=== PATIENT | female | born 1980 | race Caucasian/White ===

== ENCOUNTER 2021-06-07 08:07 | Outpatient (RCR) | payer OTHER, SELFPAY ==
[2021-06-07] MEDS: Normal Saline Flush 10 ML SYR IVP (08:37)
[2021-06-07 08:45] LABS: Abs Immature Grans 0.03 10^3/uL (0.0-0.06); Absolute Basophil Count 0.04 10^3/uL (0.0-0.2); Absolute Eosinophil Count 0.25 10^3/uL (0.0-0.7); Absolute Lymphocyte Count 0.97 10^3/uL (1.2-3.4); Absolute Monocyte Count 0.65 10^3/uL (0.1-0.8); Absolute Neutrophil Count 2.95 10^3/uL (1.2-6.7); Basophils % 0.8; Eosinophils % 5.1; HCT 38.2 % (36.0-46.0); HGB 11.9 g/dL (11.2-15.7); Immature Grans % 0.6; Lymphocytes % 19.8; MCH 30.1 pg (27.0-33.0); MCHC 31.2 % (32.0-36.0); MCV 96.5 fL (80-95); MPV 9.1 fL (8.0-11.0); Monocytes % 13.3; Neutrophils % 60.4; Nucleated RBC 0 %; Platelet Count 254 10^3/uL (130-400); RBC 3.96 10^6/uL (3.93-5.22); RDW 17.1 % (11.7-14.6); RDW-SD 60.5 fL; WBC 4.89 10^3/uL (4.4-10.8)
[2021-06-07 08:59] LABS: ALT 42 U/L (14-59); AST 30 U/L (15-37); Albumin 3.4 g/dL (3.4-5.0); Alkaline Phosphatase 142 U/L (46-116); Anion Gap 11.2 mmol/L (3-11); BUN 10 mg/dL (7-18); Bilirubin, Total 0.4 mg/dL (0.2-1.0); CO2 26.8 mmol/L (21.0-32.0); CREATININE 0.6 mg/dL (0.55-1.02); Chloride 109 mmol/L (98-107); Glucose 101 mg/dL (74-106); Potassium 3.9 mmol/L (3.5-5.1); Sodium 147 mmol/L (136-145); Total Protein 6.8 g/dL (6.4-8.2)
[2021-06-07 17:33] LABS: CEA 11.6 ng/mL (See Note)
== END 2021-06-20 23:59 | disposition home or self-care (01) ==
LOC: INF 08:07
PROVIDERS: Visit Provider Internal Medicine Hematology & Oncology
DX: C20 Malignant neoplasm of rectum (principal); C78.00 Secondary malignant neoplasm of unspecified lung; Z45.2 Encounter for adjustment and management of vascular access device
CPT/HCPCS: 36415; 36591; 80053; 82378; 85025

== ENCOUNTER 2021-07-18 02:21 | Outpatient (RCR) | payer OTHER, SELFPAY ==
[2021-06-21] MEDS: Normal Saline Flush 10 ML SYR IVP (10:38)
[2021-06-21 10:51] LABS: Abs Immature Grans 0.18 10^3/uL (0.0-0.06); Absolute Basophil Count 0.05 10^3/uL (0.0-0.2); Absolute Eosinophil Count 0.65 10^3/uL (0.0-0.7); Absolute Lymphocyte Count 1.54 10^3/uL (1.2-3.4); Absolute Monocyte Count 0.44 10^3/uL (0.1-0.8); Absolute Neutrophil Count 6.45 10^3/uL (1.2-6.7); Basophils % 0.5; HCT 38.5 % (36.0-46.0); HGB 11.9 g/dL (11.2-15.7); Immature Grans % 1.9; Lymphocytes % 16.5; MCH 29.8 pg (27.0-33.0); MCHC 30.9 % (32.0-36.0); MCV 96.3 fL (80-95); MPV 9.2 fL (8.0-11.0); Monocytes % 4.7; Neutrophils % 69.4; Nucleated RBC 0 %; Platelet Count 218 10^3/uL (130-400); RDW-SD 59.6 fL; WBC 9.31 10^3/uL (4.4-10.8)
[2021-06-21 11:07] LABS: ALT 77 U/L (14-59); AST 34 U/L (15-37); Albumin 3.3 g/dL (3.4-5.0); Alkaline Phosphatase 188 U/L (46-116); Anion Gap 9.7 mmol/L (3-11); BUN 13 mg/dL (7-18); Bilirubin, Total 0.3 mg/dL (0.2-1.0); CO2 25.3 mmol/L (21.0-32.0); CREATININE 0.7 mg/dL (0.55-1.02); Calcium 8.7 mg/dL (8.5-10.1); Chloride 106 mmol/L (98-107); Glucose 108 mg/dL (74-106); Potassium 3.7 mmol/L (3.5-5.1); Sodium 141 mmol/L (136-145); Total Protein 6.6 g/dL (6.4-8.2)
[2021-06-22 08:43] LABS: CEA 7.4 ng/mL (See Note)
[2021-07-05] MEDS: Normal Saline Flush 10 ML SYR IVP (09:30)
[2021-07-05 09:44] LABS: Abs Immature Grans 0.27 10^3/uL (0.0-0.06); Absolute Basophil Count 0.07 10^3/uL (0.0-0.2); Absolute Eosinophil Count 0.33 10^3/uL (0.0-0.7); Absolute Lymphocyte Count 1.49 10^3/uL (1.2-3.4); Absolute Monocyte Count 0.47 10^3/uL (0.1-0.8); Absolute Neutrophil Count 6.27 10^3/uL (1.2-6.7); Basophils % 0.8; Eosinophils % 3.7; HCT 35.4 % (36.0-46.0); HGB 10.9 g/dL (11.2-15.7); Lymphocytes % 16.7; MCH 29.5 pg (27.0-33.0); MCHC 30.8 % (32.0-36.0); MCV 95.7 fL (80-95); MPV 8.8 fL (8.0-11.0); Monocytes % 5.3; Neutrophils % 70.5; Nucleated RBC 0 %; Platelet Count 228 10^3/uL (130-400); RDW 17.4 % (11.7-14.6); RDW-SD 60.9 fL
[2021-07-05 10:01] LABS: ALT 94 U/L (14-59); AST 44 U/L (15-37); Alkaline Phosphatase 207 U/L (46-116); Anion Gap 10.4 mmol/L (3-11); BUN 11 mg/dL (7-18); Bilirubin, Total 0.3 mg/dL (0.2-1.0); CO2 25.6 mmol/L (21.0-32.0); CREATININE 0.7 mg/dL (0.55-1.02); Calcium 8.5 mg/dL (8.5-10.1); Chloride 108 mmol/L (98-107); Glucose 108 mg/dL (74-106); Potassium 3.4 mmol/L (3.5-5.1); Sodium 144 mmol/L (136-145); Total Protein 6.4 g/dL (6.4-8.2)
[2021-07-05 16:56] LABS: CEA 7.2 ng/mL (See Note)
[2021-07-18] MEDS: Normal Saline Flush 10 ML SYR IVP (09:15)
[2021-07-18 09:20] LABS: HCT 36.8 % (36.0-46.0); HGB 11.2 g/dL (11.2-15.7); MCH 29.5 pg (27.0-33.0); MCHC 30.4 % (32.0-36.0); MCV 96.8 fL (80-95); MPV 9.1 fL (8.0-11.0); Nucleated RBC 0 %; Platelet Count 209 10^3/uL (130-400); RDW 17.6 % (11.7-14.6); RDW-SD 62.1 fL; WBC 10.03 10^3/uL (4.4-10.8)
[2021-07-18 09:32] LABS: ALT 56 U/L (14-59); AST 30 U/L (15-37); Albumin 3.1 g/dL (3.4-5.0); Alkaline Phosphatase 201 U/L (46-116); Anion Gap 9.8 mmol/L (3-11); BUN 10 mg/dL (7-18); Bilirubin, Total 0.3 mg/dL (0.2-1.0); CO2 26.2 mmol/L (21.0-32.0); CREATININE 0.7 mg/dL (0.55-1.02); Calcium 8.5 mg/dL (8.5-10.1); Chloride 106 mmol/L (98-107); Glucose 125 mg/dL (74-106); Potassium 3.6 mmol/L (3.5-5.1); Sodium 142 mmol/L (136-145); Total Protein 6.4 g/dL (6.4-8.2)
[2021-07-18 09:41] LABS: Absolute Lymphocyte Count 2.01 10^3/uL (1.2-3.4); Absolute Neutrophil Count 6.92 10^3/uL (1.2-6.7); Anisocytosis 1+; Bands % 6; Diff Comment Manual Differential; Metamyelocytes % 1; Myelocytes % 2
== END 2021-07-21 23:59 | disposition home or self-care (01) ==
LOC: INF 02:21
PROVIDERS: Visit Provider Internal Medicine Hematology & Oncology
DX: C20 Malignant neoplasm of rectum (principal); C78.00 Secondary malignant neoplasm of unspecified lung; Z45.2 Encounter for adjustment and management of vascular access device
CPT/HCPCS: 36591; 80053; 82378; 85025

== ENCOUNTER 2022-01-05 09:01 | Emergency (ER) | payer OTHER, SELFPAY ==
[2022-01-05 09:05] VITALS: BP 136/79; PULSE 110; RESP 18; TEMP 36.6; O2SAT 95
[2022-01-05 09:24] VITALS: RESP 17
[2022-01-05] MEDS: Normal Saline 1,000 ML 1000 ML IV ×2 (09:54→10:25)
--- NOTE | 2022-01-05 09:55 | ED.GENADUL_ITS ---
Discharge Plan Disposition Patient Disposition: HOME Condition: Improving Discharge Details Clinical Impression: Decreased stooling, Rectal cancer Primary Care Provider: Unknown,Unknown ED Provider: Kartik Root Home Meds and New Rx's Prescriptions: New ondansetron 4 mg tablet,disintegrating 4 mg PO TID 3 Days Qty: 9 0RF Continued prednisone 20 mg Tablet 20 mg PO DAILY oxycodone 5 mg Tablet 5 mg PO Q4H PRN Eliquis 5 mg Tablet 5 mg PO BID Discharge Instructions Additional Instructions: Your laboratory values today are reassuring. You were provided with 2 L of IV fluid to help hydrate. You were also given a single dose of mag citrate and a stool softener here in the ER. You can take the other half of the mag citrate over the next 12-24 hours depending on if you are having adequate bowel movements. While taking oxycodone I do recommend taking an [id number] stool softener. Please watch for new or worsening symptoms and return to the ER for any concerns. Melvi as directed. I strongly recommend contacting your oncology team in [place] regarding your ER visit, ongoing symptoms, and hopefully obtaining that MRI of your abdomen and pelvis sooner rather than later. Medical Decision Making This is a 41-year-old female, past medical history of metastatic rectal cancer followed in [place], in the process of changing her care from [place] to more local, presenting to the ER today for acute on chronic rectal pain but concern for dehydration and constipation. Patient states that she was provided a prescription of narcotic medication 1 week ago by her oncology team for her ongoing discomfort and since that time has had decreased colostomy output. She states that she took a laxative last night but this subsequently made her nauseous and she had 1 episode of vomiting. Denies any active nausea now. She has been able to tolerate p.o. intake. Clinically she appears well, nontoxic, no acute distress. She does not clinically appear dehydrated. Her abdominal examination reveals a colostomy with stool in the bag, abdomen has normal bowel sounds, soft throughout. The external buttock and rectal examination was unremarkable. Internal rectal exam was deferred given her rectal cancer. Unfortunately I am likely unable to obtain a stat MRI of the abdomen and pelvis here in the ER setting today. Plan is to obtain IV access, give 2 L IV fluid, obtain routine screening laboratory. Clinically extremely low suspicion for bowel obstruction. Patient denies history of bowel obstruction. CBC, CMP revealed no obvious emergent process. Discussed findings with patient. Will give a single dose of mag citrate as well as a stool softener Patient tolerated oral intake and was then seen ambulating steadily to the restroom. She tells me she feels slightly more gassy, but can feel her bowels trying to have a bowel movement. She reports minimal nausea but denies any vomiting. 4 mg of Zofran provided. Nausea resolved. Patient able to tolerate p.o. intake such as water and crackers without any difficulty whatsoever The patient was observed in the ER for over 4 hours. No vomiting while under my care. Was able to tolerate p.o. intake. Reports a small amount of output from her colostomy. Discussed options with patient. She is relieved that her laboratory values are unremarkable and that she was able to receive IV fluid. She feels better and is comfortable with discharge. She will begin taking a stool softener daily while on her oxycodone medication. She will be provided a short-term prescription of Zofran as well. She will be given another dose of mag citrate to go home with and if no improvement over the next 12 hours or so will likely take the next dose tomorrow morning. Standard discharge and return precautions were provided. Patient understands, is agreeable to this plan, and has no additional questions or concerns upon discharge. This documentation was generated using [employer] dictation system, please disregard any oddities of phrase or misspellings. Lab Data Lab results reviewed: Yes I reviewed the patient's lab results. Labs: Laboratory Tests Range/Units 01/05/22 01/05/22 09:51 09:51 WBC (4.4-10.8) 10^3/uL 9.21 RBC (3.93-5.22) 10^6/uL 4.41 Hgb (11.2-15.7) g/dL 13.1 Hct (36.0-46.0) % 42.3 MCV (80-95) fL 96 H MCH (27.0-33.0) pg 29.7 MCHC (32.0-36.0) % 31.0 L RDW (11.7-14.6) % 14.0 Plt Count (130-400) 10^3/uL 293 MPV (8.0-11.0) fL 8.8 Immature Gran % 0.4 Neutrophils % 73.4 Lymphocytes % 14.1 Monocytes % 10.3 Eosinophils % 1.4 Basophils % 0.4 Nucleated RBC % (0.0-0.3) % 0.0 Absolute Neutrophils (1.2-6.7) 10^3/uL 6.75 H Absolute Lymphocytes (1.2-3.4) 10^3/uL 1.30 Absolute Monocytes (0.1-0.8) 10^3/uL 0.95 H Absolute Eosinophils (0.0-0.7) 10^3/uL 0.13 Absolute Basophils (0.0-0.2) 10^3/uL 0.04 Sodium (136-145) mmol/L 146 H Potassium (3.5-5.1) mmol/L 3.4 L Chloride (98-107) mmol/L 107 Carbon Dioxide (21.0-32.0) mmol/L 30.8 Anion Gap (3-11) mmol/L 8.2 BUN (7-18) mg/dL 18 Creatinine (0.55-1.02) mg/dL 1.0 Estimated GFR/1.73 m2 (mL/min/1.73m2) >= 60.00 Glucose (74-106) mg/dL 98 Calcium (8.5-10.1) mg/dL 8.8 Total Bilirubin (0.2-1.0) mg/dL 0.7 AST (15-37) U/L 24 ALT (14-59) U/L 27 Alkaline Phosphatase (46-116) U/L 135 H Total Protein (6.4-8.2) g/dL 7.1 Albumin (3.4-5.0) g/dL 3.3 L Lipase (73-393) U/L 63 HPI General Mode of arrival: ambulatory . Date/Time Provider Initiated Documentation: 01/05/22 09:01 . Limitations to Documentation: no limitations . Information obtained by: patient . HPI Narrative: This is a 41-year-old female with a past medical history that includes metastatic rectal cancer, status post colostomy in 2018, in the process of transitioning her care from [place] to [place], presenting to the ER for a decreased stool output from her colostomy bag and acute on chronic worsening rectal pain over the past few weeks. Patient states that 1 week ago she contacted her oncologist who placed her on a narcotic medication, since that time she has had decreased stool output but is still having some output. She did take a laxative last night which caused her to vomit x1. She denies recent illness or trauma. She denies fever, chest pain, shortness of breath, abdominal pain, black tarry stools or bright red blood in her stools. Patient states that she typically has an aching or throbbing pain in her buttocks but now it feels more of a sharp and tight pain which is different. She tells me that her most recent imaging reveals worsening mets to her lungs. She states that she is in the process of obtaining an MRI of her abdomen and pelvis for further evaluation of her ongoing symptoms but has been held up because of insurance purposes. Patient states that she is likely heading back down to the [facility] area in the next week or so. Because of the decreased stool output and vomiting x1 she is concerned of dehydration. Related Data Home Medications Medication Instructions Recorded Confirmed apixaban 5 mg tablet (Eliquis) 5 mg PO BID 01/05/22 01/05/22 ondansetron 4 mg disintegrating 4 mg PO TID 3 days #9 tabs 01/05/22 tablet oxycodone 5 mg tablet 5 mg PO Q4H PRN 01/05/22 01/05/22 prednisone 20 mg tablet 20 mg PO DAILY 01/05/22 01/05/22 Previous Rx's Medication Instructions Recorded ondansetron 4 mg disintegrating 4 mg PO TID 3 days #9 tabs 01/05/22 tablet Allergies Allergy/AdvReac Type Severity Reaction Status Date / Time No Known Allergies Allergy Unverified 01/05/22 09:08 General Stated Complaint: GenMedical NANCY: 3 Review of Systems Constitutional Constitutional: Denies fever(s) and Denies headache(s) ENT Ears, Nose, Mouth, and Throat: Denies headache(s) Cardiovascular Cardiovascular: Denies chest pain and Denies dyspnea Respiratory Respiratory: Denies cough and Denies dyspnea Gastrointestinal Gastrointestinal: Denies abdominal pain, Reports constipation, Denies diarrhea, Reports nausea and Reports vomiting Genitourinary Genitourinary: Denies dysuria Musculoskeletal Musculoskeletal: Denies back pain Integumentary/Breasts Skin/Breast: Denies rash Neurologic Neurologic: Denies headache(s) Hematologic/Lymphatic Hematologic/Lymphatic: Reports easy bleeding and Reports easy bruising PFSH All Active Problems (Updated 01/05/22 @ 13:08 by GT Greco) Decreased stooling (Acute) Rectal cancer (Acute) Social History Smoking/Tobacco Use Status: Never Smoking risk assessment performed?: Yes Alcohol Intake: current Alcohol Intake frequency: holidays/special occasions only Drug use: Never Substance use type: does not use Do you feel safe at home: Yes Do you feel safe in your relationship?: Yes Exam Const General: cooperative, healthy appearing, comfortable and no acute distress Orientation: alert and awake HENMD Head: normal to inspection, normocephalic and atraumatic Face and sinus: normal facial exam Mouth: moist mucous membranes Eyes General: appearance normal, both eyes and all related structures Conjunctivae: conjunctivae normal Neck Neck: normal visual inspection, full ROM, trachea midline and supple Resp Effort & Inspection: normal respiratory effort and able to speak in complete sentences Auscultation: clear to auscultation bilaterally Cardio Rate: regular rate Rhythm: regular rhythm GI Palpation: soft, not firm, no guarding, no pulsatile masses and nontender Auscultation: normal bowel sounds Rectal Exam - female: visual inspection normal Other: Colostomy present, small amount of stool in the colostomy bag. Back/Spine/Pelvis Back: no CVA tenderness and No back tenderness Skin General skin exam: no rashes or lesions noted Neuro General: patient alert, patient awake, moves all extremities and no focal motor deficits Cognition: normal cognition Speech: speech normal Gait: normal gait Motor: muscle tone normal throughout Sensory Exam: no sensory deficits noted Extrem General: normal to inspection, full ROM and capillary refill normal Psych Appearance: grossly normal Mental Status: mental status grossly normal Course Vital Signs Vital signs: Vital Signs Temperature 36.6 C 01/05/22 09:05 Pulse 110 H 01/05/22 09:05 Respiratory Rate 18 01/05/22 09:05 Blood Pressure 136/79 01/05/22 09:05 Pulse Oximetry 95 01/05/22 09:05 Temperature 36.6 C 01/05/22 09:05 Temperature Source Temporal Artery Scan 01/05/22 09:05 Pulse 110 H 01/05/22 09:05 Respiratory Rate 17 01/05/22 09:24 Respiratory Effort Non-Labored 01/05/22 09:24 Respiratory Depth Normal 01/05/22 09:24 Respiratory Pattern Normal 01/05/22 09:24 Blood Pressure 136/79 01/05/22 09:05 Blood Pressure Position Sitting 01/05/22 09:05 Pulse Oximetry 95 01/05/22 09:05 Oxygen Delivery Method Room Air 01/05/22 09:05 Oxygen Flow Rate 0 01/05/22 09:05
[2022-01-05 10:15] LABS: ALT 27 U/L (14-59); AST 24 U/L (15-37); Albumin 3.3 g/dL (3.4-5.0); Alkaline Phosphatase 135 U/L (46-116); Anion Gap 8.2 mmol/L (3-11); BUN 18 mg/dL (7-18); Bilirubin, Total 0.7 mg/dL (0.2-1.0); CO2 30.8 mmol/L (21.0-32.0); Calcium 8.8 mg/dL (8.5-10.1); Chloride 107 mmol/L (98-107); Glucose 98 mg/dL (74-106); Lipase 63 U/L (73-393); Potassium 3.4 mmol/L (3.5-5.1); Sodium 146 mmol/L (136-145); Total Protein 7.1 g/dL (6.4-8.2)
[2022-01-05 10:35] LABS: Abs Immature Grans 0.04 10^3/uL (0.0-0.06); Absolute Basophil Count 0.04 10^3/uL (0.0-0.2); Absolute Eosinophil Count 0.13 10^3/uL (0.0-0.7); Absolute Monocyte Count 0.95 10^3/uL (0.1-0.8); Absolute Neutrophil Count 6.75 10^3/uL (1.2-6.7); Basophils % 0.4; Eosinophils % 1.4; HCT 42.3 % (36.0-46.0); HGB 13.1 g/dL (11.2-15.7); Immature Grans % 0.4; Lymphocytes % 14.1; MCH 29.7 pg (27.0-33.0); MCV 96 fL (80-95); MPV 8.8 fL (8.0-11.0); Monocytes % 10.3; Neutrophils % 73.4; Platelet Count 293 10^3/uL (130-400); RBC 4.41 10^6/uL (3.93-5.22); RDW-SD 49.5 fL; WBC 9.21 10^3/uL (4.4-10.8)
[2022-01-05] MEDS: Docusate Sodium 100 MG CAP (10:57)
[2022-01-05] MEDS: Magnesium Citrate 300 ML BTL 150 ML PO (10:57)
[2022-01-05 12:00] VITALS: PULSE 76; RESP 16; O2SAT 100
[2022-01-05] MEDS: Ondansetron 4 MG/2 ML VIAL IVP (12:42)
[2022-01-05 13:36] VITALS: BP 115/59; PULSE 83; RESP 18; TEMP 36.6; O2SAT 98
== END 2022-01-05 13:38 | disposition home or self-care (01) ==
PROVIDERS: Emergency Provider Physician Assistant
DX: R19.5 Other fecal abnormalities (principal); C20 Malignant neoplasm of rectum; K62.89 Other specified diseases of anus and rectum
CPT/HCPCS: 36415; 80053; 83690; 96361; 96374; 99284; 85025; J2405